=== PATIENT | male | born 2000 ===

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

== ENCOUNTER 2018-08-26 16:44 | Emergency (ER) | payer BC ==
[2018-08-26] MEDS ORDERED: NS(*) 0.9% 1000 ML BAG 1,000 ML IV ONE ×2 (16:47→18:35)
--- NOTE | 2018-08-26 16:51 | ER Report ---
History and Physical Time Seen By MD: 16:46 HPI/ROS CHIEF COMPLAINT: Altered mental status HISTORY OF PRESENT ILLNESS: This is a 18-year-old male who presents to the emergency department via EMS for altered mental status. According to EMS patient was on his way to his friend's house, the friends look at there from window noted that the patient was down on the ground, "sort of rolling around", no tonic-clonic or seizure-like activity. Patient was not responsive EMS was contacted, when they arrived they checked his blood sugar noted it was 35 given an amp of D50. Patient did start to arouse, no history of diabetes. Denies alcohol or drugs. Upon arrival he does have some slurred speech, denies chest pain or shortness breath. He does think it's May, he is following commands but very delayed. No other significant past medical history that the patient is indicating. He also states that she was in [place], recently returned had martha samson for an infection in his right hand. He states he does have a mild frontal headache. REVIEW OF SYSTEMS: Constitutional: No fever, no chills. Eyes: No discharge. ENT: No sore throat. Cardiovascular: No chest pain, no palpitations. Respiratory: No cough, no shortness of breath. Gastrointestinal: No abdominal pain, no vomiting. Genitourinary: No hematuria. Musculoskeletal: No back pain. Skin: No rashes. Neurological: As above. Allergies: Coded Allergies: peanut (Verified Allergy, Severe, ANAPHALAXSIS, 08/26/18) Home Meds No Active Prescriptions or Reported Meds Past Medical/Surgical History The patient has a past medical surgical history of depression. Reviewed Nurses Notes: Yes Constitutional Vital Sign - Last 24 Hours 08/26/18 08/26/18 08/26/18 08/26/18 16:48 16:54 16:59 17:00 Temp 98.0 Pulse 117 82 Resp 44 41 B/P (MAP) 152/77 113/65 (81) 120/73 (89) Pulse Ox 92 94 08/26/18 08/26/18 08/26/18 08/26/18 17:14 17:29 17:30 17:59 Pulse 77 76 72 Resp 15 14 16 B/P (MAP) 104/81 (89) Pulse Ox 93 95 96 5/4/19 5/4/19 18:00 18:14 Pulse 59 Resp 15 B/P (MAP) 113/75 (88) Pulse Ox 97 Physical Exam General Appearance: The patient is alert, has no immediate need for airway protection and no signs of toxicity, anxious. Eyes: Sluggish, 4 mm Pupils equal and round no pallor or injection. EOMs intact. No nystagmus. ENT, Mouth: Mucous membranes are dry. Respiratory: There are no retractions, lungs are clear to auscultation. Cardiovascular: Tachycardic, Regular rate and rhythm, no murmurs, clicks or rubs. Gastrointestinal: Abdomen is soft and non tender, no masses, bowel sounds normal. Neurological: Alert and oriented 3. Moving all extremities. Following all commands though delayed response. No focal neuro deficits. Skin: Warm and dry, no rashes. Small abrasions to bilateral hands. Musculoskeletal: Neck is supple non tender. Extremities are nontender, nonswollen and have full range of motion. DIFFERENTIAL DIAGNOSIS: After history and physical exam differential diagnosis was considered for altered mental status including but not limited to hypoglycemia, infectious process, electrolyte abnormality, head injury and intoxicants. Medical Decision Making Data Points Result Diagram: 08/26/18 1700 08/26/18 1700 Laboratory Hematology Test 08/26/18 17:00 08/26/18 17:30 08/26/18 18:14 Red Blood Count 5.28 M/uL (4.00-5.60) Mean Corpuscular Volume 99.3 fL (80.0-96.0) Mean Corpuscular Hemoglobin 33.5 pg (26.0-33.0) Mean Corpuscular Hemoglobin Concent 33.7 g/dL (32.0-36.0) Red Cell Distribution Width 13.4 % (11.5-14.5) Mean Platelet Volume 9.4 fL (7.2-11.1) Neutrophils (%) (Auto) 34.1 % (39.4-72.5) Lymphocytes (%) (Auto) 54.5 % (17.6-49.6) Monocytes (%) (Auto) 10.3 % (4.1-12.4) Eosinophils (%) (Auto) 0.6 % (0.4-6.7) Basophils (%) (Auto) 0.5 % (0.3-1.4) Nucleated RBC Relative Count (auto) 1.0 /100WBC Neutrophils # (Auto) 4.2 K/uL (2.0-7.4) Lymphocytes # (Auto) 6.7 K/uL (1.3-3.6) Monocytes # (Auto) 1.3 K/uL (0.3-1.0) Eosinophils # (Auto) 0.1 K/uL (0.0-0.5) Basophils # (Auto) 0.1 K/uL (0.0-0.1) Nucleated RBC Absolute Count (auto) 0.12 K/uL D-Dimer Quantitative (PE/DVT) < 0.27 ug/ml (0-0.50) Sodium Level 140 mmol/L (137-145) Potassium Level 3.4 mmol/L (3.5-5.0) Chloride Level 104 mmol/L (98-107) Carbon Dioxide Level 14 mmol/L (22-30) Blood Urea Nitrogen 15 mg/dl (9-21) Creatinine 1.30 mg/dl (0.66-1.25) Glomerular Filtration Rate Calc > 60.0 Random Glucose 220 mg/dl (75-110) Osmolality 299 mOSM/K (275-295) Calcium Level 9.2 mg/dl (8.4-10.2) Total Bilirubin 1.5 mg/dl (0.2-1.3) Aspartate Amino Transf (AST/SGOT) 21 U/L (0-35) Alanine Aminotransferase (ALT/SGPT) 10 U/L (0-56) Alkaline Phosphatase 42 U/L (0-126) Ammonia < 9 UMOL/L (9-33) Troponin I < 0.012 ng/ml Total Protein 7.4 g/dl (6.3-8.2) Albumin 4.9 g/dl (3.5-5.0) Salicylates Level < 10 mg/L Salicylate Last Dose Date unk Serum Alcohol < 10 mg/dl Urine Color Yellow Urine Clarity Clear Urine pH 5.0 pH (4.8-9.5) Urine Specific [place] 1.019 Urine Protein 30 mg/dL (NEGATIVE) Urine Glucose (UA) 150 mg/dL (NEGATIVE) Urine Ketones Negative mg/dL (NEGATIVE) Urine Blood Small (NEGATIVE) Urine Nitrite Negative (NEGATIVE) Urine Bilirubin Negative (NEGATIVE) Urine Urobilinogen Negative mg/dL (0.2-1.9) Urine Leukocyte Esterase Negative (NEGATIVE) Urine RBC 1 /HPF (0-2/HPF) Urine WBC 1 /HPF (0-5/HPF) Urine Squamous Epithelial Cells None /LPF (</=FEW) Urine Bacteria Negative /HPF (NONE-FEW) Urine Mucus None /HPF (NONE-FEW) Urine Opiates Screen Negative Urine Barbiturates Screen Negative Ur Tricyclic Antidepressants Screen Negative Urine Phencyclidine Screen Negative Urine Amphetamines Screen Negative Urine Benzodiazepines Screen Negative Urine Cocaine Screen Negative Urine Cannabinoids Screen Positive Lactate 5.5 mmol/L (0.7-2.1) Chemistry Test 08/26/18 17:00 08/26/18 17:30 08/26/18 18:14 White Blood Count 12.3 k/uL (4.5-11.0) Red Blood Count 5.28 M/uL (4.00-5.60) Hemoglobin 17.7 g/dL (14.0-18.0) Hematocrit 52.4 % (42.0-52.0) Mean Corpuscular Volume 99.3 fL (80.0-96.0) Mean Corpuscular Hemoglobin 33.5 pg (26.0-33.0) Mean Corpuscular Hemoglobin Concent 33.7 g/dL (32.0-36.0) Red Cell Distribution Width 13.4 % (11.5-14.5) Platelet Count 247 K/uL (150-450) Mean Platelet Volume 9.4 fL (7.2-11.1) Neutrophils (%) (Auto) 34.1 % (39.4-72.5) Lymphocytes (%) (Auto) 54.5 % (17.6-49.6) Monocytes (%) (Auto) 10.3 % (4.1-12.4) Eosinophils (%) (Auto) 0.6 % (0.4-6.7) Basophils (%) (Auto) 0.5 % (0.3-1.4) Nucleated RBC Relative Count (auto) 1.0 /100WBC Neutrophils # (Auto) 4.2 K/uL (2.0-7.4) Lymphocytes # (Auto) 6.7 K/uL (1.3-3.6) Monocytes # (Auto) 1.3 K/uL (0.3-1.0) Eosinophils # (Auto) 0.1 K/uL (0.0-0.5) Basophils # (Auto) 0.1 K/uL (0.0-0.1) Nucleated RBC Absolute Count (auto) 0.12 K/uL D-Dimer Quantitative (PE/DVT) < 0.27 ug/ml (0-0.50) Glomerular Filtration Rate Calc > 60.0 Osmolality 299 mOSM/K (275-295) Calcium Level 9.2 mg/dl (8.4-10.2) Total Bilirubin 1.5 mg/dl (0.2-1.3) Aspartate Amino Transf (AST/SGOT) 21 U/L (0-35) Alanine Aminotransferase (ALT/SGPT) 10 U/L (0-56) Alkaline Phosphatase 42 U/L (0-126) Ammonia < 9 UMOL/L (9-33) Troponin I < 0.012 ng/ml Total Protein 7.4 g/dl (6.3-8.2) Albumin 4.9 g/dl (3.5-5.0) Salicylates Level < 10 mg/L Salicylate Last Dose Date unk Serum Alcohol < 10 mg/dl Urine Color Yellow Urine Clarity Clear Urine pH 5.0 pH (4.8-9.5) Urine Specific [place] 1.019 Urine Protein 30 mg/dL (NEGATIVE) Urine Glucose (UA) 150 mg/dL (NEGATIVE) Urine Ketones Negative mg/dL (NEGATIVE) Urine Blood Small (NEGATIVE) Urine Nitrite Negative (NEGATIVE) Urine Bilirubin Negative (NEGATIVE) Urine Urobilinogen Negative mg/dL (0.2-1.9) Urine Leukocyte Esterase Negative (NEGATIVE) Urine RBC 1 /HPF (0-2/HPF) Urine WBC 1 /HPF (0-5/HPF) Urine Squamous Epithelial Cells None /LPF (</=FEW) Urine Bacteria Negative /HPF (NONE-FEW) Urine Mucus None /HPF (NONE-FEW) Urine Opiates Screen Negative Urine Barbiturates Screen Negative Ur Tricyclic Antidepressants Screen Negative Urine Phencyclidine Screen Negative Urine Amphetamines Screen Negative Urine Benzodiazepines Screen Negative Urine Cocaine Screen Negative Urine Cannabinoids Screen Positive Lactate 5.5 mmol/L (0.7-2.1) Coagulation Test 08/26/18 17:00 D-Dimer Quantitative (PE/DVT) < 0.27 ug/ml Toxicology Test 08/26/18 17:00 08/26/18 17:30 Salicylates Level < 10 mg/L Salicylate Last Dose Date unk Serum Alcohol < 10 mg/dl Urine Opiates Screen Negative Urine Barbiturates Screen Negative Ur Tricyclic Antidepressants Screen Negative Urine Phencyclidine Screen Negative Urine Amphetamines Screen Negative Urine Benzodiazepines Screen Negative Urine Cocaine Screen Negative Urine Cannabinoids Screen Positive Urinalysis Test 08/26/18 17:30 Urine Color Yellow Urine Clarity Clear Urine pH 5.0 pH (4.8-9.5) Urine Specific [place] 1.019 Urine Protein 30 mg/dL (NEGATIVE) Urine Glucose (UA) 150 mg/dL (NEGATIVE) Urine Ketones Negative mg/dL (NEGATIVE) Urine Blood Small (NEGATIVE) Urine Nitrite Negative (NEGATIVE) Urine Bilirubin Negative (NEGATIVE) Urine Urobilinogen Negative mg/dL (0.2-1.9) Urine Leukocyte Esterase Negative (NEGATIVE) Urine RBC 1 /HPF (0-2/HPF) Urine WBC 1 /HPF (0-5/HPF) Urine Squamous Epithelial Cells None /LPF (</=FEW) Urine Bacteria Negative /HPF (NONE-FEW) Urine Mucus None /HPF (NONE-FEW) EKG/Imaging EKG Interpretation 12 lead EKG: Time of EKG 1700. Rhythm: Normal sinus rhythm, ventricular rate 96 bpm. Reeves: normal QRS: normal ST segments: No ST depression or elevation identified. Imaging PATIENT NAME: Can Ayoub : 2000 MR: [id number] V: [id number] EXAM DATE: ORDERING PHYSICIAN: HIRO RODAS TECHNOLOGIST: Location: [facility] Patient: Can Ayoub : 2000 Visit/Account:[id number] Date of Sevice: 08/26/2018 EXAMINATION: CT head without IV contrast HISTORY: AMS. TECHNIQUE: Axial CT images of the head were obtained from the vertex to the skull base without IV contrast, with coronal and sagittal 2D reconstructed images. One of the following dose optimization techniques was utilized in the performance of this exam: Automated exposure control; adjustment of the mA and/or kV according to the patient's size; or use of an iterative reconstruction technique. Specific details can be referenced in the facility's radiology CT exam operational policy. COMPARISON: None. FINDINGS: The intracranial contents are unremarkable. No CT evidence of intracranial hemorrhage, mass lesion, or acute infarct. No midline shift or extra-axial fluid collections. Hadley-white differentiation is maintained. The calvarium is intact. The visualized paranasal sinuses and mastoid air cells are unopacified. IMPRESSION: Unremarkable noncontrast head CT. Report Dictated By: Gaurav Russell MD at 08/26/2018 6:15 PM Report E-Signed By: Gaurav Russell MD at 08/26/2018 6:24 PM WSN:[id number] PATIENT NAME: Can Ayoub : 2000 MR: [id number] V: [id number] EXAM DATE: ORDERING PHYSICIAN: HIRO RODAS TECHNOLOGIST: Location: [facility] Patient: Can Ayoub : 2000 Visit/Account:[id number] Date of Sevice: 08/26/2018 Examination: CHEST SINGLE AP Comparison: None. History: Altered mental status. Findings: Cardiac and hilar contour size is normal. No consolidation, nodule, or peribronchial inflammation. No pneumothorax, edema, or effusion. Osseous structures are intact. IMPRESSION: Negative chest. Report Dictated By: Ishan Richardson MD at 08/26/2018 6:17 PM Report E-Signed By: Ishan Richardson MD at 08/26/2018 6:19 PM WSN:[id number] ED Course/Re-evaluation Clinical Indication for ER IV: Hydration, IV Access ED Course Patient was admitted to room via EMS. History and physical obtained. Differential diagnoses were considered. An IV was started. A CBC, CMP, lactate, toxicology screen were obtained. A 1 L normal saline bolus was given 2.CBC showing white count 12.3, H&H 52.4 and a 99.3. Chemistries showing potassium 3.4, CO2 14, creatinine 1.3, although molality to 99, lactate 5.5, negative troponin. Negative d-dimer, toxicology screen showing positive for cannabis, negative serum alcohol, urine showing specific gravity 1.019, small blood and glucose, likely from the amp of D50, otherwise unremarkable. Negative single view chest, negative head CT. Patient had no other "episodes", while in the ER, mental status did clear, patient was able to give me more information, states he was walking from his friend's house today back to his house, and suddenly became lightheaded and fell to the ground. He has also been taking an antibiotic for 3 weeks, the antibiotic is Baxdela, unsure if this is coming treating to the pat isis's event today as he has been on the antibiotic for 3 weeks has 10 pills left, I did recommend stopping the antibiotic and following up with [facility]. We also discussed and admission of the hospital initially the patient agreed to admission, I did speak with the hospitalist on-call Dr. Mancuso, he accepted the patient in the hospitalist services, the patient ultimately did elect to leave against medical advice states "I just don't like hospitals". Patient was encouraged to stay with a friend or family and return immediately for any concerns, he expressed understanding, he did sign the AMA form and does understand that this could potentially be life-threatening. 08/26/2018 5:23:31 pm patient did stand up, right-sided gurney, steady gait however we did remain at the bedside, patient did try to drink from the urinal several times, redirected the patient explained to him that it is a urinal and not a glass. He does appear very anxious. Decision to Disposition Date: August 26, 2018 Decision to Disposition Time: 19:04 Depart Departure Latest Vital Signs Vital Signs Date Time Temp Pulse Resp B/P (MAP) Pulse Ox O2 Delivery O2 Flow Rate FiO2 08/26/18 18:14 59 15 97 08/26/18 18:00 113/75 (88) 08/26/18 16:48 98.0 Impression: Primary Impression: Altered mental status Additional Impressions: Hypoglycemia Left against medical advice Condition: Improved Disposition: HOME OR SELF-CARE [facility] Days New Scripts No Active Prescriptions or Reported Meds Patient Instructions: Altered Mental Status (ED), Non-diabetic Hypoglycemia (ED) Additional Instructions: Please understand that these conditions are greatly concerning, he is elected to leave against medical advice rather than being admitted to the hospital. Please eat regularly. Drink plenty of water. Avoid using marijuana. Please follow-up with [facility] Tuesday for reevaluation. Please stay with friends or family, somebody that can observe U through the next 2 days, if there are any concerns please call 911 immediately. Return to the ER for any other concerns or worsening symptoms. Please stop taking Baxdela as this could be contributing to the episode today. Problem Qualifiers Primary Impression: Altered mental status Altered mental status type: unspecified Qualified Codes: R41.82 - Altered mental status, unspecified [employer]IRO RODAS [employer]-BC August 26, 2018 16:51
[2018-08-26 17:29] LABS: PLATELET COUNT, AUTOMATED 247 K/uL (150-450)
--- NOTE | 2018-08-26 18:22 | RADIOLOGY IMAGING REPORT ---
FACILITY: [facility] [place] PATIENT NAME: Can Ayoub : 2000 MR: [id number] V: [id number] EXAM DATE: ORDERING PHYSICIAN: HIRO RODAS TECHNOLOGIST: Location: [facility] [place] Patient: Can Ayoub : 2000 Visit/Account:[id number] Date of Sevice: 08/26/2018 Examination: CHEST SINGLE AP Comparison: None. History: Altered mental status. Findings: Cardiac and hilar contour size is normal. No consolidation, nodule, or peribronchial inflam mation. No pneumothorax, edema, or effusion. Osseous structures are intact. IMPRESSION: Negative chest. Report Dictated By: Ishan Richardson MD at 08/26/2018 6:17 PM Report E-Signed By: Ishan Richardson MD at 08/26/2018 6:19 PM WSN:[id number]
--- NOTE | 2018-08-26 18:28 | RADIOLOGY IMAGING REPORT ---
FACILITY: [facility] [place] PATIENT NAME: Can Ayoub : 2000 MR: [id number] V: [id number] EXAM DATE: ORDERING PHYSICIAN: HIRO RODAS TECHNOLOGIST: Location: [facility] [place] Patient: Can Ayoub : 2000 Visit/Account:[id number] Date of Sevice: 08/26/2018 EXAMINATION: CT head without IV contrast HISTORY: AMS. TECHNIQUE: Axial CT images of the head were obtained from the vertex to the skull base without IV c ontrast, with coronal and sagittal 2D reconstructed images. One of the following dose optimization techniques was utilized in the performance of this exam: Autom ated exposure control; adjustment of the mA and/or kV according to the patient's size; or use of an i terative reconstruction technique. Specific details can be referenced in the facility's radiology C T exam operational policy. COMPARISON: None. FINDINGS: The intracranial contents are unremarkable. No CT evidence of intracranial hemorrhage, mass lesion, or acute infarct. No midline shift or extra-axial fluid collections. Hadley-white differentiation is maintained. The calvarium is intact. The visualized paranasal sinuses and mastoid air cells are unopacified. IMPRESSION: Unremarkable noncontrast head CT. Report Dictated By: Gaurav Russell MD at 08/26/2018 6:15 PM Report E-Signed By: Gaurav Russell MD at 08/26/2018 6:24 PM [id number]
[2018-08-26 19:30] VITALS: BP 128/87
--- NOTE | 2018-08-26 23:15 | EKG ---
FACILITY: [facility] PATIENT NAME: TRES ZUNIGA : [id number] MR: [id number] V: [id number] EXAM DATE: ORDERING PHYSICIAN: HIRO RODAS TECHNOLOGIST: WILSON Test Reason : ALOC Blood Pressure : / mmHG Vent. Rate : 096 BPM Atrial Rate : 096 BPM P-R Int : 138 ms QRS Dur : 096 ms QT Int : 360 ms P-R-T Axes : 080 096 081 degrees QTc Int : 454 ms Normal sinus rhythm with sinus arrhythmia Right atrial enlargement Borderline ECG No previous ECGs available Confirmed by MORENITA CHAVEZ ([id number]) on 08/27/2018 6:23:19 AM Referred By: [email or web address] Confirmed By:MORENITA CHAVEZ
== END 2018-08-26 20:00 | disposition left against medical advice (07) ==
LOC: ER 17:02
DX: R41.82 Altered mental status, unspecified (principal); E16.2 Hypoglycemia, unspecified; I49.9 Cardiac arrhythmia, unspecified
CPT/HCPCS: 36415; 70450; 71045; 80305; 80320; 80329; 81001; 82140; 83605; 83930; 84443; 84484; 85025; 85379; 93005; 96360; 99284; J7030; 82040; 82247; 82310; 82374; 82435; 82565; 82947; 84075; 84132; 84155; 84295; 84450; 84460; 84520

== ENCOUNTER → 2018-08-26 | Outpatient (CLI) | payer BC | LOC: AMB 16:23 | PROVIDERS: ATTEND Nurse Practitioner | DX: R40.4 Transient alteration of awareness (principal); E16.2 Hypoglycemia, unspecified | CPT/HCPCS: A0425; A0427 ==